=== PATIENT | male | born 1985 | race Caucasian/White ===

== ENCOUNTER 2018-07-24 12:13 | Inpatient (IN) | payer OTHER ==
[2018-07-24 12:34] VITALS: BMI 15.6
--- NOTE | 2018-07-24 13:08 | HP ---
COWS - Scale Resting Pulse: 1= [place] 81-100 Sweatin= Chills/Flushing Restless Observation: 3= Extraneous Movement Pupil Size: 1= Pupils >than Normal Bone or Joint Aches: 2= Severe Diffuse Aches Runny Nose/ Eye Tearin= Runny Nose/Eyes GI Upset > 30mins: 3= Vomiting/Diarrhea Tremor Observation: 2= Slight Tremor Visible Yawning Observation: 2= >3x During Session Anxiety or Irritability: 2=Irritable/Anxious Goose Flesh Skin: 0=Smooth Skin COWS Score: 19 CIWA Score Nausea/Vomitin Muscle Tremors: 2 Anxiety: 2 Agitation: 2 Paroxysmal Sweats: 1-Minimal Palms Moist Orientation: 0-Oriented Tacttile Disturbances: 1-Very Mild Itch/Numbness Auditory Disturbances: 1-Very Mild Visual Disturbances: 0-None Headache: 2-Mild CIWA-Ar Total Score: 13 - Admission Criteria OASAS Guidelines: Admission for Medically Managed Detox: Requires at least one of the followin. CIWA greater than 12 2. Seizures within the past 24 hours 3. Delirium tremens within the past 24 hours 4. Hallucinations within the past 24 hours 5. Acute intervention needed for co occurring medical disorder 6. Acute intervention needed for co occurring psychiatric disorder 7. Severe withdrawal that cannot be handled at a lower level of care (continued vomiting, continued diarrhea, abnormal vital signs) requiring intravenous medication and/or fluids 8. Admission ROS [facility] Chief Complaint: i need help to stop using heroin and xanax Allergies/Adverse Reactions: Allergies Allergy/AdvReac Type Severity Reaction Status Date / Time No Known Allergies Allergy Verified 07/24/18 15:53 History of Present Illness: this 33 years old male with heroin and xanax dependence,seeking detox, withdrawal symptom, never been in detox before nicotine dependence 10 cigarette/day seizure drug withdrawal weight loss no plan after detox,possible out patient program - Ebola screening Have you traveled outside of the country in the last 21 days: No (N) Have you had contact with anyone from an Ebola affected area: No Have you been sick,other than usual withdrawal symptoms: No Do you have a fever: No - Review of Systems Constitutional: Chills, Loss of Appetite, Malaise, Night Sweats, Changes in sleep, Weakness, Unintentional Wgt. Loss EENT: reports: Nose Congestion Respiratory: reports: No Symptoms reported Cardiac: reports: No Symptoms Reported GI: reports: Nausea, Vomiting, Abdominal cramping Musculoskeletal: reports: Back Pain, Muscle Pain Neuro: reports: Headache, Seizure, Tremors Endocrine: reports: No Symptoms Reported Hematology: reports: No Symptoms Reported Psychiatric: reports: No Sypmtoms Reported, Judgement Intact, Mood/Affect Appropiate, Orientated x3, other Other Systems: Reviewed and Negative Patient History - Patient Medical History Hx Anemia: No Hx Asthma: No Hx Chronic Obstructive Pulmonary Disease (COPD): No Hx Cancer: No Hx Cardiac Disorders: No Hx Congestive Heart Failure: No Hx Hypertension: No Hx Hypercholesterolemia: No Hx Pacemaker: No HX Cerebrovascular Accident: No Hx Seizures: Yes (02/11 withdrawal seizure) Hx Dementia: No Hx Diabetes: No Hx Gastrointestinal Disorders: No Hx Liver Disease: No Hx Genitourinary Disorders: No Hx Sexually Transmitted Disorders: No Hx Renal Disease (ESRD): No Hx Thyroid Disease: No Hx Human Immunodeficiency Virus (HIV): No (never been tested,did not want the test done) Hx Hepatitis C: No Hx Depression: No Hx Suicide Attempt: No Hx Bipolar Disorder: No Hx Schizophrenia: No Other Medical History: no suicidal,no homicidal - Patient Surgical History Past Surgical History: No - PPD History Previous Implant?: Yes Documented Results: Negative w/o proof Implanted On Prior [facility] Admission?: No PPD to be Administered?: Yes - Smoking Cessation Smoking history: Current every day smoker Have you smoked in the past 12 months: Yes Aproximately how many cigarettes per day: 10 Cigars Per Day: 0 Hx Chewing Tobacco Use: No Initiated information on smoking cessation: Yes 'Breaking Loose' booklet given: 07/24/18 - Substance & Tx. History Hx Alcohol Use: No Hx Substance Use: Yes Substance Use Type: Heroin, Tranquilizers Hx Substance Use Treatment: No - Substances Abused Heroin Route: Inhalation Frequency: Daily Amount used: 20 bags Age of first use: 22 Date of Last Use: 07/23/18 Alprazolam (Xanax) Route: Oral Frequency: Daily (4 mgs) Amount used: 4 mgs Age of first use: 21 Date of Last Use: 07/22/18 Family Disease History - Family Disease History Family History: Denies Admission Physical Exam BHS - Vital Signs Vital Signs: Vital Signs - 24 hr 07/24/18 12:18 Temperature 96.7 F L Pulse Rate 86 Respiratory 18 Rate Blood Pressure 104/79 - Physical General Appearance: Yes: Moderate Distress, Tremorous, Irritable, Sweating, Anxious HEENTM: Yes: Normal ENT Inspection, Normocephalic, AVERY, Pharynx Normal Respiratory: Yes: Within Normal Limits, Lungs Clear, Normal Breath Sounds, No Respiratory Distress Neck: Yes: Within Normal Limits, Supple, Trachea in good position Breast: Yes: Within Normal Limits Cardiology: Yes: Within Normal Limits, Regular Rhythm, Regular Rate, S1, S2 Abdominal: Yes: Normal Bowel Sounds, Soft Genitourinary: Yes: Within Normal Limits Back: Yes: Muscle Spasm Musculoskeletal: Yes: Back pain, Joint Stiffness, Muscle Pain Extremities: Yes: Tremors Neurological: Yes: Within Normal Limits, middleware architect II-XII NML intact, Fully Oriented, Alert, Motor Strength 5/5 Integumentary: Yes: Dry Lymphatic: Yes: Within Normal Limits - Diagnostic (1) Opioid dependence with withdrawal Current Visit: Yes Status: Acute (2) Uncomplicated sedative, hypnotic, or anxiolytic withdrawal Current Visit: Yes Status: Acute (3) Nicotine dependence Current Visit: Yes Status: Acute (4) Dehydration Current Visit: Yes Status: Acute (5) Weight loss Current Visit: Yes Status: Acute Cleared for Admission [facility] - Detox or Rehab [facility] Level of Care: Medically Managed Detox Regimen/Protocol: Methadone/Valium [facility] Breath Alcohol Content Breath Alcohol Content: 0 Urine Drug Screen - Results Drug Screen Negative: No Urine Drug Screen Results: OPI-Opiates, BZO-Benzodiazepines, FEN-Fentanyl Inpatient Rehab Admission - Rehab Decision to Admit Inpatient rehab admission?: No
[2018-07-24] MEDS ORDERED: hydrOXYzine PAMOATE 25 MG CAPSULE (FP) PO PRN (13:21)
[2018-07-24] MEDS ORDERED: METHOCARBAMOL 500 MG TABLET PO PRN (13:21)
[2018-07-24] MEDS ORDERED: cloNIDine HCL 0.1 MG TABLET PO PRN (13:21)
[2018-07-24] MEDS ORDERED: MAG HYDROX/AL HYDROX/SIMETH 30 ML UNIT-DOSE CUP PO PRN (13:21)
[2018-07-24] MEDS ORDERED: BISMUTH SUBSALICYLATE 524 MG/30 ML UD PO PRN (13:21)
[2018-07-24] MEDS ORDERED: ACETAMINOPHEN 325 MG TABLET (FP) PO PRN ×2 (13:21)
[2018-07-24] MEDS ORDERED: MAGNESIUM HYDROX 2400MG/30ML ORAL SUSPENSION 30 ML CUP PO PRN (13:21)
[2018-07-24] MEDS ORDERED: MAGNESIUM CITRATE 300 ML BOTTLE PO PRN (13:21)
[2018-07-24] MEDS ORDERED: NICOTINE POLACRILEX 2 MG GUM BUC PRN (13:21)
[2018-07-24] MEDS ORDERED: MENTHOL/PHENOL 1 EACH UD MM PRN (13:21)
[2018-07-24] MEDS ORDERED: IBUPROFEN 400 MG TABLET (FP) PO PRN (13:21)
[2018-07-24] MEDS: diazePAM 5 MG TABLET PO PRN (15:47)
[2018-07-24] MEDS: NICOTINE 21 MG/24 HOURS TOPICAL PATCH TD SCH (15:48)
[2018-07-24] MEDS ORDERED: METHADONE HCL 10 MG TABLET (FOR DETOX USE ONLY) PO ONE ×2 (16:30→23:00)
[2018-07-24 19:32] LABS: EPI CELLS 1.1 /HPF (0-5); PH,URINE >= 9.0 (5.0-8.0); URINE APPEARANCE CLEAR; URINE BACTERIA 0.7 /hpf (NEGATIVE); URINE BILIRUBIN NEGATIVE (NEGATIVE); URINE CASTS 8 /hpf (0-8); URINE COLOR DK YELLOW; URINE GLUCOSE (UA) NEGATIVE (NEGATIVE); URINE KETONE 1+ (NEGATIVE); URINE LEUK ESTERASE TRACE (NEGATIVE); URINE NITRITE NEGATIVE (NEGATIVE); URINE PROTEIN 1+ (NEGATIVE); URINE WBC 3 /hpf (0-5)
[2018-07-24] MEDS: diazePAM 5 MG TABLET PO SCH (22:40)
[2018-07-24] MEDS: THIAMINE HCL 100 MG TABLET (FP) PO SCH (22:40)
[2018-07-24] MEDS: MELATONIN 5 MG TABLETS PO PRN (22:42)
[2018-07-25] MEDS: diazePAM 5 MG TABLET PO SCH ×3 (05:25→22:10)
[2018-07-25] MEDS ORDERED: METHADONE HCL 10 MG TABLET (FOR DETOX USE ONLY) PO ONE (10:00)
[2018-07-25] MEDS: PRENATAL VITAMINS W/ FOLIC ACID TABLET (FP) PO SCH (10:21)
[2018-07-25] MEDS: diazePAM 5 MG TABLET PO PRN ×2 (10:21→16:54)
[2018-07-25] MEDS: NICOTINE 21 MG/24 HOURS TOPICAL PATCH TD SCH (10:23)
[2018-07-25 10:34] LABS: HEMATOCRIT 44.8 % (35.4-49); HEMOGLOBIN 14.6 GM/dL (11.7-16.9); MCH 30.4 pg (25.7-33.7); MCHC 32.7 g/dl (32.0-35.9); MEAN PLT VOLUME 8.4 fl (7.5-11.1); PLATELET COUNT 188 K/MM3 (134-434); RBC 4.82 M/mm3 (4.00-5.60); RDW 13.1 % (11.9-15.9); WHITE BLOOD COUNT 5.9 K/mm3 (4.0-10.0)
[2018-07-25 10:45] LABS: ALBUMIN 3.9 g/dl (3.4-5.0); ALK PHOS 61 U/L (45-117); ANION GAP 6 MMOL/L (8-16); BILIRUBIN,TOTAL 0.8 mg/dL (0.2-1); BLOOD UREA NITROGEN 14 mg/dL (7-18); CALCIUM 8.9 mg/dL (8.5-10.1); CHLORIDE 100 mmol/L (98-107); CO2 29 mmol/L (21-32); CREATININE 0.5 mg/dL (0.55-1.3); GLUCOSE,RANDOM 93 mg/dL (74-106); SGOT/AST 23 U/L (15-37); SGPT/ALT 30 U/L (13-61); SODIUM 135 mmol/L (136-145); TOT PROT 7.4 g/dl (6.4-8.2)
--- NOTE | 2018-07-25 11:49 | PN ---
[facility] CIWA - CIWA Score Nausea/Vomitin-No Nausea/No Vomiting Muscle Tremors: 2 Anxiety: 2 Agitation: 1-Slight > Activity Paroxysmal Sweats: 1-Minimal Palms Moist Orientation: 2-Disoriented Date<2 days Tacttile Disturbances: 0-None Auditory Disturbances: 0-None Visual Disturbances: 0-None Headache: 2-Mild CIWA-Ar Total Score: 10 BHS COWS - Scale Resting Pulse: 0= [place] 80 or Below Sweatin= Chills/Flushing Restless Observation: 1= Difficult to Sit Still Pupil Size: 0= Normal to Room Light Bone or Joint Aches: 2= Severe Diffuse Aches Runny Nose/ Eye Tearin= Nasal Congestion GI Upset > 30mins: 2= Nausea/Diarrhea Tremor Observation of Outstretched Hands: 2= Slight Tremor Visible Yawning Observation: 2= >3x During Session Anxiety or Irritability: 2=Irritable/Anxious Goose Flesh Skin: 0=Smooth Skin COWS Score: 13 BHS Progress Note (SOAP) Subjective: body aches mild sweating otherwise doing ok Objective: 07/25/18 11:47 Vital Signs Temperature 97.4 F L 07/25/18 09:53 Pulse Rate 72 07/25/18 09:53 Respiratory Rate 18 07/25/18 09:53 Blood Pressure 120/82 07/25/18 09:53 O2 Sat by Pulse Oximetry (%) Laboratory Last Values WBC 5.9 K/mm3 (4.0-10.0) 07/25/18 07:30 RBC 4.82 M/mm3 (4.00-5.60) 07/25/18 07:30 Hgb 14.6 GM/dL (11.7-16.9) 07/25/18 07:30 Hct 44.8 % (35.4-49) 07/25/18 07:30 MCV 93.0 fl (80-96) 07/25/18 07:30 MCH 30.4 pg (25.7-33.7) 07/25/18 07:30 MCHC 32.7 g/dl (32.0-35.9) 07/25/18 07:30 RDW 13.1 % (11.9-15.9) 07/25/18 07:30 Plt Count 188 K/MM3 (134-434) 07/25/18 07:30 MPV 8.4 fl (7.5-11.1) 07/25/18 07:30 Sickle Cell Screen Negative (NEGATIVE) 07/25/18 07:30 Sodium 135 mmol/L (136-145) L 07/25/18 07:30 Potassium 4.0 mmol/L (3.5-5.1) 07/25/18 07:30 Chloride 100 mmol/L (98-107) 07/25/18 07:30 Carbon Dioxide 29 mmol/L (21-32) 07/25/18 07:30 Anion Gap 6 MMOL/L (8-16) L 07/25/18 07:30 BUN 14 mg/dL (7-18) 07/25/18 07:30 Creatinine 0.5 mg/dL (0.55-1.3) L 07/25/18 07:30 Creat Clearance w eGFR 192.70 (>60) 07/25/18 07:30 Random Glucose 93 mg/dL (74-106) 07/25/18 07:30 Calcium 8.9 mg/dL (8.5-10.1) 07/25/18 07:30 Total Bilirubin 0.8 mg/dL (0.2-1) 07/25/18 07:30 AST 23 U/L (15-37) 07/25/18 07:30 ALT 30 U/L (13-61) 07/25/18 07:30 Alkaline Phosphatase 61 U/L (45-117) 07/25/18 07:30 Total Protein 7.4 g/dl (6.4-8.2) 07/25/18 07:30 Albumin 3.9 g/dl (3.4-5.0) 07/25/18 07:30 Urine Color Dk yellow 07/24/18 15:47 Urine Appearance Clear 07/24/18 15:47 Urine pH >= 9.0 (5.0-8.0) H 07/24/18 15:47 Ur Specific [place] 1.028 (1.010-1.035) 07/24/18 15:47 Urine Protein 1+ (NEGATIVE) H 07/24/18 15:47 Urine Glucose (UA) Negative (NEGATIVE) 07/24/18 15:47 Urine Ketones 1+ (NEGATIVE) H 07/24/18 15:47 Urine Blood Negative (NEGATIVE) 07/24/18 15:47 Urine Nitrite Negative (NEGATIVE) 07/24/18 15:47 Urine Bilirubin Negative (NEGATIVE) 07/24/18 15:47 Urine Urobilinogen 1.0 mg/dL (0.2-1.0) 07/24/18 15:47 Ur Leukocyte Esterase Trace (NEGATIVE) 07/24/18 15:47 Urine WBC (Auto) 3 /hpf (0-5) 07/24/18 15:47 Urine RBC (Auto) 15.0 /hpf (0-4) 07/24/18 15:47 Urine Casts (Auto) 8 /hpf (0-8) 07/24/18 15:47 U Epithel Cells (Auto) 1.1 /HPF (0-5) 07/24/18 15:47 Urine Bacteria (Auto) 0.7 /hpf (NEGATIVE) 07/24/18 15:47 RPR Titer Nonreactive (NONREACTIVE) 07/25/18 07:30 lab noted 07/25/18 11:49 uti Assessment: 07/25/18 11:49 withdrawal sx uti Plan: continue detox
[2018-07-25] MEDS: SULFAMETHOXAZOLE/TRIMETHOPRIM 800MG/160MG D.S. TABLET PO SCH ×2 (13:45→22:10)
[2018-07-25] MEDS ORDERED: QUEtiapine FUMARATE 50 MG TABLET PO ONE (22:00)
[2018-07-25] MEDS: THIAMINE HCL 100 MG TABLET (FP) PO SCH (22:10)
[2018-07-25] MEDS: MELATONIN 5 MG TABLETS PO PRN (22:11)
[2018-07-26] MEDS ORDERED: METHADONE HCL 10 MG TABLET (FOR DETOX USE ONLY) PO ONE (10:00)
[2018-07-26] MEDS: SULFAMETHOXAZOLE/TRIMETHOPRIM 800MG/160MG D.S. TABLET PO SCH ×2 (10:17→22:10)
[2018-07-26] MEDS: PRENATAL VITAMINS W/ FOLIC ACID TABLET (FP) PO SCH (10:17)
[2018-07-26] MEDS: diazePAM 5 MG TABLET PO SCH ×2 (10:18→22:11)
[2018-07-26] MEDS: NICOTINE 21 MG/24 HOURS TOPICAL PATCH TD SCH (10:18)
--- NOTE | 2018-07-26 11:22 | EKG ---
Test Reason : Blood Pressure : / mmHG Vent. Rate : 046 BPM Atrial Rate : 046 BPM P-R Int : 150 ms QRS Dur : 098 ms QT Int : 442 ms P-R-T Axes : 066 088 081 degrees QTc Int : 386 ms SINUS BRADYCARDIA WITH PREMATURE ATRIAL COMPLEXES POSSIBLE LEFT ATRIAL ENLARGEMENT NONSPECIFIC ST ABNORMALITY ABNORMAL ECG NO PREVIOUS ECGS AVAILABLE Confirmed by COMFORT HASTINGS MD ([id number]) on 07/26/2018 11:21:35 AM Referred By: GENESIS BELCHER Confirmed By:COMFORT HASTINGS MD
--- NOTE | 2018-07-26 14:58 | PN ---
S CIWA - CIWA Score Nausea/Vomitin-No Nausea/No Vomiting Muscle Tremors: 3 Anxiety: 3 Agitation: 2 Paroxysmal Sweats: 3 Orientation: 0-Oriented Tacttile Disturbances: 2-Mild Itch/Numbness/Burn Auditory Disturbances: 0-None Visual Disturbances: 0-None Headache: 0-None Present CIWA-Ar Total Score: 13 BHS COWS - Scale Resting Pulse: 1= [place] 81-100 Sweatin= Chills/Flushing Restless Observation: 1= Difficult to Sit Still Pupil Size: 0= Normal to Room Light Bone or Joint Aches: 2= Severe Diffuse Aches Runny Nose/ Eye Tearin= None GI Upset > 30mins: 0= None Tremor Observation of Outstretched Hands: 2= Slight Tremor Visible Yawning Observation: 1= 1-2x During Session Anxiety or Irritability: 2=Irritable/Anxious Goose Flesh Skin: 0=Smooth Skin COWS Score: 10 BHS Progress Note (SOAP) Subjective: Sweating, Body Aches, Tremors. Objective: PATIENT A & O X 3, OBSERVED AMBULATING ON UNIT. IN NO ACUTE DISTRESS. 07/26/18 14:58 Vital Signs Temperature 96.4 F L 07/26/18 13:16 Pulse Rate 71 07/26/18 13:16 Respiratory Rate 18 07/26/18 13:16 Blood Pressure 121/84 07/26/18 13:16 O2 Sat by Pulse Oximetry (%) Laboratory Tests 07/24/18 07/25/18 07/25/18 15:47 07:30 07:30 WBC 5.9 RBC 4.82 Hgb 14.6 Hct 44.8 MCV 93.0 MCH 30.4 MCHC 32.7 RDW 13.1 Plt Count 188 MPV 8.4 Sickle Cell Screen Negative Sodium Potassium Chloride Carbon Dioxide Anion Gap BUN Creatinine Creat Clearance w eGFR Random Glucose Calcium Total Bilirubin AST ALT Alkaline Phosphatase Total Protein Albumin Urine Color Dk yellow Urine Appearance Clear Urine pH >= 9.0 H Ur Specific [place] 1.028 Urine Protein 1+ H Urine Glucose (UA) Negative Urine Ketones 1+ H Urine Blood Negative Urine Nitrite Negative Urine Bilirubin Negative Urine Urobilinogen 1.0 Ur Leukocyte Esterase Trace Urine WBC (Auto) 3 Urine RBC (Auto) 15.0 Urine Casts (Auto) 8 U Epithel Cells (Auto) 1.1 Urine Bacteria (Auto) 0.7 RPR Titer 07/25/18 07/25/18 07:30 07:30 WBC RBC Hgb Hct MCV MCH MCHC RDW Plt Count MPV Sickle Cell Screen Sodium 135 L Potassium 4.0 Chloride 100 Carbon Dioxide 29 Anion Gap 6 L BUN 14 Creatinine 0.5 L Creat Clearance w eGFR 192.70 Random Glucose 93 Calcium 8.9 Total Bilirubin 0.8 AST 23 ALT 30 Alkaline Phosphatase 61 Total Protein 7.4 Albumin 3.9 Urine Color Urine Appearance Urine pH Ur Specific [place] Urine Protein Urine Glucose (UA) Urine Ketones Urine Blood Urine Nitrite Urine Bilirubin Urine Urobilinogen Ur Leukocyte Esterase Urine WBC (Auto) Urine RBC (Auto) Urine Casts (Auto) U Epithel Cells (Auto) Urine Bacteria (Auto) RPR Titer Nonreactive LABS NOTED. Assessment: 07/26/18 14:58 WITHDRAWAL SYMPTOMS. Plan: CONTINUE DETOX.
[2018-07-26] MEDS: THIAMINE HCL 100 MG TABLET (FP) PO SCH (22:10)
[2018-07-26] MEDS: MELATONIN 5 MG TABLETS PO PRN (22:12)
[2018-07-27] MEDS ORDERED: diazePAM 5 MG TABLET PO SCH (06:00)
[2018-07-27] MEDS ORDERED: METHADONE HCL 10 MG TABLET (FOR DETOX USE ONLY) PO ONE (10:00)
[2018-07-27] MEDS: SULFAMETHOXAZOLE/TRIMETHOPRIM 800MG/160MG D.S. TABLET PO SCH ×2 (10:20→22:16)
[2018-07-27] MEDS: PRENATAL VITAMINS W/ FOLIC ACID TABLET (FP) PO SCH (10:20)
[2018-07-27] MEDS: NICOTINE 21 MG/24 HOURS TOPICAL PATCH TD SCH (10:21)
--- NOTE | 2018-07-27 14:38 | PN ---
BHS Progress Note (SOAP) Subjective: Interrupted Sleep, Stomach Cramping, Tremors. Objective: PATIENT A & O X 3, OBSERVED AMBULATING ON UNIT. IN NO ACUTE DISTRESS. 07/27/18 14:37 Vital Signs Temperature 97.2 F L 07/27/18 13:51 Pulse Rate 69 07/27/18 13:51 Respiratory Rate 18 07/27/18 13:51 Blood Pressure 137/89 07/27/18 13:51 O2 Sat by Pulse Oximetry (%) Laboratory Tests 07/24/18 07/25/18 07/25/18 15:47 07:30 07:30 WBC 5.9 RBC 4.82 Hgb 14.6 Hct 44.8 MCV 93.0 MCH 30.4 MCHC 32.7 RDW 13.1 Plt Count 188 MPV 8.4 Sickle Cell Screen Negative Sodium Potassium Chloride Carbon Dioxide Anion Gap BUN Creatinine Creat Clearance w eGFR Random Glucose Calcium Total Bilirubin AST ALT Alkaline Phosphatase Total Protein Albumin Urine Color Dk yellow Urine Appearance Clear Urine pH >= 9.0 H Ur Specific [place] 1.028 Urine Protein 1+ H Urine Glucose (UA) Negative Urine Ketones 1+ H Urine Blood Negative Urine Nitrite Negative Urine Bilirubin Negative Urine Urobilinogen 1.0 Ur Leukocyte Esterase Trace Urine WBC (Auto) 3 Urine RBC (Auto) 15.0 Urine Casts (Auto) 8 U Epithel Cells (Auto) 1.1 Urine Bacteria (Auto) 0.7 RPR Titer 07/25/18 07/25/18 07:30 07:30 WBC RBC Hgb Hct MCV MCH MCHC RDW Plt Count MPV Sickle Cell Screen Sodium 135 L Potassium 4.0 Chloride 100 Carbon Dioxide 29 Anion Gap 6 L BUN 14 Creatinine 0.5 L Creat Clearance w eGFR 192.70 Random Glucose 93 Calcium 8.9 Total Bilirubin 0.8 AST 23 ALT 30 Alkaline Phosphatase 61 Total Protein 7.4 Albumin 3.9 Urine Color Urine Appearance Urine pH Ur Specific [place] Urine Protein Urine Glucose (UA) Urine Ketones Urine Blood Urine Nitrite Urine Bilirubin Urine Urobilinogen Ur Leukocyte Esterase Urine WBC (Auto) Urine RBC (Auto) Urine Casts (Auto) U Epithel Cells (Auto) Urine Bacteria (Auto) RPR Titer Nonreactive LABS NOTED. Assessment: 07/27/18 14:37 WITHDRAWAL SYMPTOMS. Plan: CONTINUE DETOX. PATIENT SCHEDULED FOR D/C TOMORROW.
[2018-07-27] MEDS: MELATONIN 5 MG TABLETS PO PRN (22:16)
[2018-07-27] MEDS: THIAMINE HCL 100 MG TABLET (FP) PO SCH (22:17)
[2018-07-28] MEDS ORDERED: METHADONE HCL 5 MG TABLET (FOR DETOX USE ONLY) PO ONE (06:00)
[2018-07-28] MEDS: NICOTINE 21 MG/24 HOURS TOPICAL PATCH TD SCH (10:12)
[2018-07-28] MEDS: PRENATAL VITAMINS W/ FOLIC ACID TABLET (FP) PO SCH (10:12)
[2018-07-28] MEDS: SULFAMETHOXAZOLE/TRIMETHOPRIM 800MG/160MG D.S. TABLET PO SCH (10:12)
--- NOTE | 2018-07-28 15:24 | PN ---
[facility]HS Progress Note (SOAP) Subjective: Interrupted Sleep, Anxious, Tremors. Objective: PATIENT A & O X 3, OBSERVED AMBULATING ON UNIT. IN NO ACUTE DISTRESS. 07/28/18 15:25 Vital Signs Temperature 97.2 F L 07/28/18 13:16 Pulse Rate 106 H 07/28/18 13:16 Respiratory Rate 16 07/28/18 13:16 Blood Pressure 116/85 07/28/18 13:16 O2 Sat by Pulse Oximetry (%) Laboratory Tests 07/24/18 07/25/18 07/25/18 15:47 07:30 07:30 WBC 5.9 RBC 4.82 Hgb 14.6 Hct 44.8 MCV 93.0 MCH 30.4 MCHC 32.7 RDW 13.1 Plt Count 188 MPV 8.4 Sickle Cell Screen Negative Sodium Potassium Chloride Carbon Dioxide Anion Gap BUN Creatinine Creat Clearance w eGFR Random Glucose Calcium Total Bilirubin AST ALT Alkaline Phosphatase Total Protein Albumin Urine Color Dk yellow Urine Appearance Clear Urine pH >= 9.0 H Ur Specific [place] 1.028 Urine Protein 1+ H Urine Glucose (UA) Negative Urine Ketones 1+ H Urine Blood Negative Urine Nitrite Negative Urine Bilirubin Negative Urine Urobilinogen 1.0 Ur Leukocyte Esterase Trace Urine WBC (Auto) 3 Urine RBC (Auto) 15.0 Urine Casts (Auto) 8 U Epithel Cells (Auto) 1.1 Urine Bacteria (Auto) 0.7 RPR Titer 07/25/18 07/25/18 07:30 07:30 WBC RBC Hgb Hct MCV MCH MCHC RDW Plt Count MPV Sickle Cell Screen Sodium 135 L Potassium 4.0 Chloride 100 Carbon Dioxide 29 Anion Gap 6 L BUN 14 Creatinine 0.5 L Creat Clearance w eGFR 192.70 Random Glucose 93 Calcium 8.9 Total Bilirubin 0.8 AST 23 ALT 30 Alkaline Phosphatase 61 Total Protein 7.4 Albumin 3.9 Urine Color Urine Appearance Urine pH Ur Specific [place] Urine Protein Urine Glucose (UA) Urine Ketones Urine Blood Urine Nitrite Urine Bilirubin Urine Urobilinogen Ur Leukocyte Esterase Urine WBC (Auto) Urine RBC (Auto) Urine Casts (Auto) U Epithel Cells (Auto) Urine Bacteria (Auto) RPR Titer Nonreactive LABS NOTED. Assessment: 07/28/18 15:25 WITHDRAWAL SYMPTOMS. Plan: CONTINUE DETOX. DUE TO PRESENCE AND SEVERITY OF LINGERING WITHDRAWAL SYMPTOMS, PATIENT PERMITTED TO REMAIN ON DETOX UNIT UNTIL TOMORROW AM.
--- NOTE | 2018-07-28 17:02 | PN ---
[facility] Progress Note Note: RECEIVED NOTICE THAT BED IS CURRENTLY AVAILABLE AT [facility] ( [place], [place]). PATIENT EXPRESSES DESIRE TO GO TO REHAB AT THIS TIME. PATIENT TO BE DISCHARGED FROM DETOX UNIT TO GO ON TO [facility] REHAB FOR AFTERCARE. Candido SHARP NP
--- NOTE | 2018-07-28 17:09 | DS ---
[facility] Detox Discharge Summary Admission Date: 07/24/18 Discharge Date: 07/28/18 - History Present History: Opioid Dependence, Sedative Dependence Additional Comments: PATIENT GOING ON TO [facility] ([place], [place]) FOR AFTERCARE ADMISSION BED IS CURRENTLY AVAILABLE THERE AND PATIENT EXPRESSES DESIRE TO TAKE IT (PATIENT HAS ALEADY SINCE COMPLETED FULL DETOX REGIMEN AT [facility] DETOX). PATIENT WAS DISCHARGED FROM DETOX UNIT TO BE TAKEN OVER TO REHAB UNIT IN STABLE MEDICAL CONDITION. Pertinent Past History: Weight Loss, History of Seizures (Due To Withdrawal), Dehydration, Nicotine Dependence. - Physical Exam Results Vital Signs: Vital Signs Temperature 97.2 F L 07/28/18 13:16 Pulse Rate 106 H 07/28/18 13:16 Respiratory Rate 16 07/28/18 13:16 Blood Pressure 116/85 07/28/18 13:16 O2 Sat by Pulse Oximetry (%) Pertinent Admission Physical Exam Findings: WITHDRAWAL SYMPTOMS. Laboratory Tests 07/24/18 07/25/18 07/25/18 15:47 07:30 07:30 WBC 5.9 RBC 4.82 Hgb 14.6 Hct 44.8 MCV 93.0 MCH 30.4 MCHC 32.7 RDW 13.1 Plt Count 188 MPV 8.4 Sickle Cell Screen Negative Sodium Potassium Chloride Carbon Dioxide Anion Gap BUN Creatinine Creat Clearance w eGFR Random Glucose Calcium Total Bilirubin AST ALT Alkaline Phosphatase Total Protein Albumin Urine Color Dk yellow Urine Appearance Clear Urine pH >= 9.0 H Ur Specific [place] 1.028 Urine Protein 1+ H Urine Glucose (UA) Negative Urine Ketones 1+ H Urine Blood Negative Urine Nitrite Negative Urine Bilirubin Negative Urine Urobilinogen 1.0 Ur Leukocyte Esterase Trace Urine WBC (Auto) 3 Urine RBC (Auto) 15.0 Urine Casts (Auto) 8 U Epithel Cells (Auto) 1.1 Urine Bacteria (Auto) 0.7 RPR Titer 07/25/18 07/25/18 07:30 07:30 WBC RBC Hgb Hct MCV MCH MCHC RDW Plt Count MPV Sickle Cell Screen Sodium 135 L Potassium 4.0 Chloride 100 Carbon Dioxide 29 Anion Gap 6 L BUN 14 Creatinine 0.5 L Creat Clearance w eGFR 192.70 Random Glucose 93 Calcium 8.9 Total Bilirubin 0.8 AST 23 ALT 30 Alkaline Phosphatase 61 Total Protein 7.4 Albumin 3.9 Urine Color Urine Appearance Urine pH Ur Specific [place] Urine Protein Urine Glucose (UA) Urine Ketones Urine Blood Urine Nitrite Urine Bilirubin Urine Urobilinogen Ur Leukocyte Esterase Urine WBC (Auto) Urine RBC (Auto) Urine Casts (Auto) U Epithel Cells (Auto) Urine Bacteria (Auto) RPR Titer Nonreactive LABS NOTED. - Treatment Hospital Course: Detox Protocol Followed, Detoxed Safely, Responded well, Discharged Condition Good, Rehab Referral Accepted Patient has Accepted a Rehab Referral to: [facility] ([place], [place]). - Medication Discharge Medications: Ambulatory Orders NK [No Known Home Medication] 07/24/18 - Diagnosis (1) Dehydration Current Visit: Yes Status: Acute (2) Nicotine dependence Current Visit: Yes Status: Acute Qualifiers: Nicotine product type: cigarettes Substance use status: uncomplicated Qualified Code(s): F17.210 - Nicotine dependence, cigarettes, uncomplicated (3) Opioid dependence with withdrawal Current Visit: Yes Status: Acute (4) Uncomplicated sedative, hypnotic, or anxiolytic withdrawal Current Visit: Yes Status: Acute (5) Weight loss Current Visit: Yes Status: Acute - AMA Did Patient Leave Against Medical Advice: No
[2018-07-28 17:12] VITALS: BP 119/91; PULSE 94; TEMP 97.3
== END 2018-07-28 19:10 | disposition other institution (70) | DRG 773 ==
LOC: YASAS 12:13 → Y3N 14:48
PROVIDERS: ADMIT Surgery; ATTEND Surgery
PROC: HZ2ZZZZ Detoxification Services for Substance Abuse Treatment (ICD-10-PCS; principal; 2018-07-24)
DX: F11.23 Opioid dependence with withdrawal (principal); F13.230 Sedative, hypnotic or anxiolytic dependence with withdrawal, uncomplicated; F17.210 Nicotine dependence, cigarettes, uncomplicated; E86.0 Dehydration; R63.4 Abnormal weight loss; N39.0 Urinary tract infection, site not specified; Z86.69 Personal history of other diseases of the nervous system and sense organs
CPT/HCPCS: 36415; 80053; 81003; 85027; 85660; 86593; 93005; 93010

== ENCOUNTER 2018-07-28 19:47 | Inpatient (IN) | payer OTHER ==
--- NOTE | 2018-07-28 17:15 | HP ---
[facility] Rehab Assess/Revision - Admission History Admitted to Rehab from: [facility] Date of Admission to Rehab: 07/28/2018 - Vital signs Vital Signs: NOTED; STABLE. - Findings Detox History & Physical reviewed: Yes Concur with findings: Yes Comments/Additional Findings: PATIENT'S MEDICAL / MEDICATION HISTORY REVIEWED PRIOR TO DISCHARGE FROM DETOX UNIT. BACTRIM DS PO BID TO BE (STARTED FOR UTI WHILE PATIENT WAS ADMITTED FOR DETOX) TO BE CONTINUED UPON ADMISSION TO REHAB. PATIENT WAS DISCHARGED FROM DETOX UNIT TO BE TAKEN OVER TO REHAB UNIT IN STABLE MEDICAL CONDITION. Inpatient Rehab Admission - Rehab Decision to Admit Inpatient rehab admission?: Yes - Initial Determination Are CD services needed?: Yes Free of communicable disease: Yes Not in need of hospitalization: Yes - Rehab Admission Criteria Previous failed treatment: No Poor recovery environment: Yes Comorbidities: Yes Lacks judgement: Yes Patient is meeting Inpatient Rehab admission criteria:: Yes
[~2018-07-28 19:47] MED LIST: ACETAMINOPHEN 325 MG TABLET (FP) PO PRN; IBUPROFEN 400 MG TABLET (FP) PO PRN; LOPERAMIDE HCL 2 MG CAPSULE PO PRN; MAG HYDROX/AL HYDROX/SIMETH 30 ML UNIT-DOSE CUP PO PRN; MAGNESIUM CITRATE 300 ML BOTTLE PO PRN; MAGNESIUM HYDROX 2400MG/30ML ORAL SUSPENSION 30 ML CUP PO PRN; MENTHOL/PHENOL 1 EACH UD MM PRN; NICOTINE POLACRILEX 2 MG GUM BUC PRN; P-EPHED 60MG/TRIPROLIDI 2.5MG TABLET PO PRN; guaiFENesin 200 MG/10 ML 10 ML UNIT-DOSE CUPS PO PRN
[2018-07-28] MEDS ORDERED: MELATONIN 5 MG TABLETS PO PRN (22:00)
[2018-07-28] MEDS ORDERED: THIAMINE HCL 100 MG TABLET (FP) PO SCH (22:00)
[2018-07-29 07:18] VITALS: BP 123/93; PULSE 103; TEMP 97.9
[2018-07-29] MEDS ORDERED: PRENATAL VITAMINS W/ FOLIC ACID TABLET (FP) PO SCH (10:00)
[2018-07-29] MEDS ORDERED: NICOTINE 21 MG/24 HOURS TOPICAL PATCH TD SCH (10:00)
[2018-07-29] MEDS: SULFAMETHOXAZOLE/TRIMETHOPRIM 800MG/160MG D.S. TABLET PO SCH ×2 (10:34)
--- NOTE | 2018-07-29 14:44 | PN ---
[facility] Progress Note Note: Client is going to aftercare at [facility]. Counselor at [facility] wants client started on Vivitrol and [facility] will continue treatment there upon discharge.
--- NOTE | 2018-07-29 16:28 | PN ---
[facility] Progress Note (SOAP) Subjective: Client states he is leaving because his sister told him that Vivitrol is "no good." Objective: 07/29/18 16:27 Medically stable, A+O X3, neuorlogically intact, Lungs clear, heart rate regular , Vital Signs (72 hours) 07/28/18 07/29/18 07/29/18 20:56 00:30 03:30 Temperature 98.4 F Pulse Rate 94 H Respiratory 18 18 18 Rate Blood Pressure 113/88 07/29/18 07:17 Temperature 97.9 F Pulse Rate 103 H Respiratory 20 Rate Blood Pressure 123/93 07/29/18 16:27 Assessment: 07/29/18 16:28 Diagnoses: opioid dependance, chronic Plan: Client states his sister will help him find another program for aftercare. No home medications. Will arrrange medical care after discharge.
== END 2018-07-29 17:32 | disposition left against medical advice (07) | DRG 770 ==
LOC: YASAS 19:47 → Y3W 19:48
PROVIDERS: ADMIT Neuromusculoskeletal Medicine & OMM; ATTEND Neuromusculoskeletal Medicine & OMM
PROC: HZ42ZZZ Group Counseling for Substance Abuse Treatment, Cognitive-Behavioral (ICD-10-PCS; principal; 2018-07-28)
DX: F11.20 Opioid dependence, uncomplicated (principal); F13.20 Sedative, hypnotic or anxiolytic dependence, uncomplicated; F17.210 Nicotine dependence, cigarettes, uncomplicated; Z86.69 Personal history of other diseases of the nervous system and sense organs